=== PATIENT | female | born 1945 | race Caucasian/White ===

== ENCOUNTER 2017-09-30 06:16 | Day surgery (SDC) | payer MEDICARE, OTHER ==
[~2017-09-30] VITALS: Ht 165.1 cm; Wt 92.0 kg
[~2017-09-30 06:16] MED LIST: AZOR 10-20 MG1 EACH PO; CALTRATE 600 +1 EAC1 PO; CENTRUM SILVER1 EAC5 PO; FUROSEMIDE20 MG PO; GLUCOSAMINE &1 EAC1 PO; KEFLEX500 MG PO; LIPITOR20 MG PO; TIROSINT75 MCG PO
--- NOTE | 2017-09-30 08:10 | NUR ---
09/30/17 0810 Sariah Leija 0807 PATIENT ARRIVES TO PACU AWAKE, DENIES PAIN OR NAUSEA. THEN BACK TO SLEEP. RESP EVEN AND UNLABORED, NC AT 3 LITERS.
--- NOTE | 2017-10-03 08:29 | OR ---
[facility] [address] [place], [place] [address] Signed DATE OF OPERATION: 09/30/2017 SURGEON: Sara Paredes MD PREOPERATIVE DIAGNOSES: 1. Personal history of colonic polyps, 2011. 2. Pandiverticulosis. 3. Her son developed rectal cancer in his late 30s and now has a permanent colostomy bag. POSTOPERATIVE DIAGNOSES: 1. A 5 mm polyps in distal right colon, 35 cm and 16 cm. 2. Pandiverticulosis. 3. Internal and external hemorrhoids. PROCEDURE: Colonoscopy with hot biopsy. ESTIMATED BLOOD LOSS: None. INDICATIONS: Ayala is a 71-year-old female, who came to us in 2011 for her screening colonoscopy. We removed multiple hyperplastic and adenomatous polyps. She is also known to have diverticulosis. She returns now for followup colonoscopy. She explained that her son developed rectal cancer in his late 30s, now he has a permanent colostomy. However, she has no lower GI complaints. I gave her a pamphlet in the office on colonoscopy. We discussed the nature of the test along with the risks including, but not limited to, gas bloating, crampy abdominal pain, bleeding, perforation, requiring surgery, and missed diagnosis. We also discussed the need for IV conscious sedation. She had expressed understanding and wished to proceed. PROCEDURE NOTE: Ayala was taken into our endoscopy suite and placed in the left lateral decubitus position. She was given divided doses of 10 mg of Versed and 150 mcg of fentanyl. A digital rectal exam was performed and this was unremarkable. The digital rectal exam was performed and this showed some small external hemorrhoids. After this, the adult colonoscope was introduced and advanced all around into the cecum under direct visualization of camera without difficulty. Her prep was good. The scope was then slowly withdrawn. The above-mentioned polyps were removed with the help of hot biopsy forceps. She does have diverticula throughout the colon. They were moderate in size, Electronically Signed By: SARA PAREDES MD 10/03/17 0829 PATIENT NAME: AYALA NORMAN OPERATIVE REPORT DATE OF : 45 REPORT #: [id number] PHYSICIAN: SARA PAREDES MD PCP: Amada ETIENNE MD REPORT IS CONFIDENTIAL AND NOT TO BE RELEASED WITHOUT AUTHORIZATION [facility] [address] [place] [id number] Signed moderate in number, and scattered about. Once in the rectum, the scope was retroflexed and she has some small internal hemorrhoid columns as well. After this, the gas was suctioned out and the colonoscope was removed. Ayala tolerated the procedure quite well. RECOMMENDATIONS: I will see Ayala back in my office in 7 to 14 days to review her results. Sara Paredes MD ALB/VANESSAL /[id number] cc: MD Sara Martinez MD Copies: Amada ETIENNE MD, ANDREW L MD ~ Electronically Signed By: SARA PAREDES MD 10/03/17 0829 PATIENT NAME: AYALA NORMAN OPERATIVE REPORT DATE OF : 45 REPORT #: [id number] PHYSICIAN: SARA PAREDES MD PCP: Amada ETIENNE MD REPORT IS CONFIDENTIAL AND NOT TO BE RELEASED WITHOUT AUTHORIZATION
== END 2017-09-30 08:35 | disposition home or self-care (01) ==
LOC: DS 06:16
PROVIDERS: Colon & Rectal Surgery
PROC: 0DBE8ZX Excision of Large Intestine, Via Natural or Artificial Opening Endoscopic, Diagnostic (ICD-10-PCS; 2017-09-30)
PROC: 0DBF8ZX Excision of Right Large Intestine, Via Natural or Artificial Opening Endoscopic, Diagnostic (ICD-10-PCS; principal; 2017-09-30 06:45)
DX: Z12.11 Encounter for screening for malignant neoplasm of colon (principal); D12.2 Benign neoplasm of ascending colon; D12.6 Benign neoplasm of colon, unspecified; K63.5 Polyp of colon; K57.30 Diverticulosis of large intestine without perforation or abscess without bleeding; K64.4 Residual hemorrhoidal skin tags; K64.8 Other hemorrhoids; I10 Essential (primary) hypertension; E78.5 Hyperlipidemia, unspecified; E66.9 Obesity, unspecified; E03.9 Hypothyroidism, unspecified; M19.90 Unspecified osteoarthritis, unspecified site; Z90.710 Acquired absence of both cervix and uterus; Z86.010 Personal history of colon polyps; Z80.0 Family history of malignant neoplasm of digestive organs; Z90.721 Acquired absence of ovaries, unilateral; Z98.890 Other specified postprocedural states; Z87.891 Personal history of nicotine dependence; Z79.899 Other long term (current) drug therapy; Z68.37 Body mass index [BMI] 37.0-37.9, adult
CPT/HCPCS: 88305; 99153; G0500; J2250; J3010